=== PATIENT | male | born 1970 | race African-American/Black ===

== ENCOUNTER 2019-03-12 21:47 | Emergency (ER) | payer OTHER ==
[~2019-03-12] VITALS: Ht 177.8 cm; Wt 83.9 kg
[2019-03-13] MEDS ORDERED: NORFLEX100MG PO (00:45)
[2019-03-13] MEDS ORDERED: KETO10TA2 PO (00:45)
== END 2019-03-13 00:51 ==
LOC: ER 21:47
DX: S33.5XXA Sprain of ligaments of lumbar spine, initial encounter (principal); W13.3XXA Fall through floor, initial encounter; Y93.89 Activity, other specified; Y92.59 Other trade areas as the place of occurrence of the external cause; Y99.8 Other external cause status; G89.11 Acute pain due to trauma; M54.5 Low back pain